=== PATIENT | female | born 1990 | race Caucasian/White ===

== ENCOUNTER 2022-11-01 14:54 | Inpatient (IN) | payer MEDICAID, SELFPAY ==
[2022-11-01] VITALS (24 sets, daily range): BP systolic 117–169; BP diastolic 55–88; PULSE 87–122; RESP 16–18; TEMP 36.4–36.8; O2SAT 98–99; BMI 37.1; BMI 36.7
[2022-11-01 13:10] LABS: Appearance Urine Clear (Clear); Bilirubin Urine 1+ (Negative); Blood Urine 2+ (Negative); Color Urine Yellow (Yellow); Glucose Urine Negative (Negative); Ketones Urine Trace (Negative); Leukocyte Esterase Urine Negative (Negative); Nitrite Urine Negative (Negative); Protein Urine 2+ (Negative); Specific Gravity Urine 1.025 (1.000-1.030)
[2022-11-01] MEDS: AMPICILLIN 2 GM in 0.9 % SODIUM CHLORIDE Mini-bag 100 ML IVPB (13:10)
[2022-11-01 13:11] LABS: Basophils Percent Auto 0.1 % (0.0-3.0); Eosinophils Percent Auto 0.5 % (0.0-7.0); Hematocrit 35.9 % (33.0-51.0); Hemoglobin* 11.5 gm/dL (12.0-16.0); Immature Granulocytes Pct Auto 0.3 %; Lymphocytes Percent Auto 9.8 % (20-44); Mean Corpuscular HGB Conc 32 gm/dL (32-36); Mean Corpuscular Hemoglobin 25 pg (26-34); Mean Corpuscular Volume 79 fL (80-100); Monocytes Percent Auto 3.6 % (0.0-11.0); Neutrophils Percent Auto 85.7 % (42.0-72.0); Platelet Count* 275 K/uL (140-440); RDW Coefficient of Variation % 14.3 % (11.5-15.5); Red Blood Count 4.52 m/uL (4.00-5.20); White Blood Count* 17.38 K/uL (4.50-11.00)
[2022-11-01 13:18] LABS: Slide Review Reflex No
[2022-11-01 13:38] LABS: Bacteria Urine Few; Squamous Epithelial Cell Urine Moderate (None-Few)
[2022-11-01 14:08] LABS: Hepatitis B Surface Antigen* Negative (Negative)
[2022-11-01 14:18] LABS: HIV 1/2/P24 Combo Screen* Negative (Negative)
[2022-11-01 14:40] LABS: Amphetamine Screen Urine Negative (Negative); Barbiturate Screen Urine Negative (Negative); Benzodiazepines Screen Urine Negative (Negative); Cannabinoid Screen Urine Negative (Negative); Cocaine Screen Urine Negative (Negative); Methadone Screen Urine Negative (Negative); Methamphetamines Screen Urine Negative (Negative); Opiate Screen Urine Negative (Negative); Oxycodone Screen Urine Negative (Negative); Phencyclidine Screen Urine Negative (Negative); Tricyclic Antidepressant Urine Negative (Negative)
[2022-11-01 15:27] LABS: SARS PCR* Negative SARS-CoV-2 (Negative)
--- NOTE | 2022-11-01 15:33 | PM.OBHPLI ---
OB - H&P: HPI Labor/Induction History of Present Illness Time Seen by Provider: 15:33 Date Seen: 11/01/22 Chief Complaint: The patient is a 32 year old 4 para 3 at 36+4 weeks gestation by 9w US, who presents with contractions. Chief complaint: Maternity Narrative: Cheyenne Sweeney is a 32 year old female at 36 weeks 4 days by 9 week ultrasound who presents with contractions. Her has been complicated by very limited care, history of syphilis, history of depression and anxiety, tobacco dependence. She was seen for several visits and had a normal 1st trimester and 20 week survey ultrasound. However, never completed labs as ordered. Last visit was at 22 weeks. States that she did not return for care due to lack of insurance and transportation. She does not have car insurance and her license was revoked. She and her 3 older children ages 7-20 months are residing with her parents in [place]. Her children attend school in [place]. She has not worked in 3 months. Tells me she just applied for [place] benefits. She has not applied for [place] assistance, snap benefits or medical insurance. States that she has generally been well over the course of her 2nd and 3rd trimesters. No visits to the ER or another clinic. No episodes of vaginal bleeding. No fevers or other significant illnesses. Reports normal movement. Of note, she was found to be positive for syphilis on 11/05/2021, prior to . She received appropriate treatment with penicillin G 1.2 million units on 11/07/2021. She then had repeat RPR 04/22/2022, at which time titre had decreased 1:256 > 1:16. States that she knows she contracts of LEs from Dennys LESTER. He also tested positive and has been treated. Tells me he has been retested with negative results. Presented to the [facility] Emergency Department today with contractions starting overnight. Initially just tightening. Then became more uncomfortable in triage. Bloody show. No leaking or gush of fluid. [place] regularly and found to be 5 cm dilated. Review of Systems Status of ROS: Reports: 10 or more systems reviewed and unremarkable except as noted in History and below Meds Home Medications and Allergies Allergies Allergy/AdvReac Type Severity Reaction Status Date / Time No Known Drug Allergies Allergy Verified 11/01/22 13:05 OB - H&P: Exam Physical Exam: Vital signs: Temp Pulse Resp BP Pulse Ox O2 Del Method 98.2 F 116 H 16 132/70 99 11/01/22 15:08 11/01/22 15:08 11/01/22 15:08 11/01/22 15:08 11/01/22 11:54 11/01/22 11:28 Narrative: General appearance: Well-appearing adult female. Alert, oriented and appropriate. No acute distress. HEENT: Right-sided ptosis. EOMI, no conjunctival injection or discharge. No nasal discharge. Mucous membranes moist. Neck: Supple. Cardiovascular: Regular rate and rhythm, no rubs, murmurs or extra heart sounds. Pulmonary: Clear to auscultation bilaterally. No wheezes, rales or rhonchi. Abdomen: Gravid. Soft, nontender, nondistended. MSK: Moving all extremities equally. Extremities: Warm and well perfused. Mild bilateral pedal edema. Skin: No rashes appreciated over exposed skin. Neuro: Grossly normal strength and sensation. No focal deficits. Psych: Flat affect. OB - Results Labs Labs: Short CBC 11/01/22 Range/Units 13:01 WBC 17.38 H (4.50-11.00) K/uL Hgb 11.5 L (12.0-16.0) gm/dL Hct 35.9 (33.0-51.0) % Plt Count 275 (140-440) K/uL Urine 11/01/22 Range/Units 12:21 Urine Color Yellow (Yellow) Urine Appearance Clear (Clear) Urine pH 7.0 (5.0-8.5) Ur Specific [place] 1.025 (1.000-1.030) Urine Protein 2+ A (Negative) Urine Glucose (UA) Negative (Negative) OB - Problem Based A/P Additional Plan (1) labor in third trimester: Problem details: Limited care. GBS unknown. Random BG 119. Status: Acute Plan: - S/p 1 dose ampicillin at 1300 - labs drawn - Hgb A1c pending - FHT category 1 - Nitrous for pain management once covid test is back. Epidural upon request - Expectant management (2) Limited care: Problem details: Dating based on 9 wk US. Normal 20 wk survey, EFW 60th percentile. Status: Acute Plan: - labs pending (3) History of syphilis: Problem details: About 6 months prior to , treated. Subsequent titre with appropriate decrease. Partner was also treated. Patient states no subsequent new partners or suspected exposures. Status: Acute Plan: - RPR pending (4) Financial insecurity: Problem details: She and her three children live with her parents. No medical insurance. Does not currently have a drivers license. Not currently working. Status: Acute Plan: - SW consult (5) Tobacco dependence: Problem details: 1 PPD. Status: Acute Plan: - Nicotine replacement upon request.
[2022-11-01] MEDS: CALCIUM CARBONATE 500 MG CHEW PO (16:54)
[2022-11-01] MEDS: AMPICILLIN 1 GM in 0.9 % SODIUM CHLORIDE Mini-bag 100 ML IVPB (16:59)
[2022-11-01 17:44] LABS: Chlamydia DNA Amplified* Not Detected (No Detected); GC DNA Amplified* Not Detected (No Detected)
[2022-11-01] MEDS: OXYTOCIN 30 unit/500 ML in NS 30 UNIT/500 ML BAG 325 UNIT IVPB (20:52)
[2022-11-01] MEDS: LIDOCAINE 1 % PF 30 ML INJECTION ×2 (20:52→21:23)
[2022-11-01] MEDS: KETOROLAC 30 MG/ML inj IVP (21:22)
--- NOTE | 2022-11-01 22:01 | P.OBPRC_ITS ---
Procedure Delivery date: 11/01/22 Procedure Done: Global Procedure Details: 32-year-old at 36 weeks 4 days by 9 wk ultrasound presented with regular contractions, found to be 5 cm dilated.? Contractions began overnight and became more intense upon evaluation in triage.? Limited care.? GBS unknown and she received ampicillin x2 doses prior to delivery.? She progressed to complete with AROM for clear fluid at 5:48 p.m. Pain was controlled with nitrous oxide.? She became complete, time unknown and started pushing at 8:16 p.m. she delivered a vigorous male over an intact perineum at 8:25 p.m. in the OA position.? was placed on maternal chest initially.? Umbilical cord was clamped and cut after approximately 5 minutes.? Infant was then brought to the warmer for evaluation by SHIPFITTER HELPER.? Patient received IV Pitocin and there is active management of 3rd stage.? Placenta delivered spontaneously at 8:34 p.m, intact 3 vessel cord.? There was a third-degree perineal laceration.? Ob on-call, Dr. Lima Mckoy was called in to evaluate and repair.? EBL was 50 mL.? Apgars were 8 and 8.
--- NOTE | 2022-11-01 22:30 | P.GYNCN_ITS ---
FENCE REPAIRMAN - CN: HPI Data of Consult Date Seen: 11/01/22 Patient: Steffanie Patient Consult date: 11/01/22 Requesting Physician: Sylwia Rai MD Primary Care Provider: Harry Hollins MD Consult Narrative Reason for consult: other (Third degree laceration repair) Narrative: Cheyenne Sweeney is a 32 year old G4 now P4 female status post unmedicated spontaneous vaginal delivery at 36 4/7 weeks gestation at 8:25 p.m. this evening. I was consulted for perineal repair as it appeared to be a third- degree. The patient received 50 mcg fentanyl IV prior to my arrival, and 10 mL 1% lidocaine had been infiltrated into the perineum. cc:: CC: Sylwia Rai MD [facility] Medical History (Updated 11/01/22 @ 22:35 by Lima Mckoy MD) Anxiety Cyst of Bartholin's gland duct Major depression PCOS (polycystic ovarian syndrome) Syphilis Surgical History (Updated 11/01/22 @ 15:56 by Sylwia Rai MD) Joy teeth extracted Social History Smoking Status: Current every day smoker Meds Home Medications and Allergies Allergies Allergy/AdvReac Type Severity Reaction Status Date / Time No Known Drug Allergies Allergy Verified 11/01/22 13:05 FENCE REPAIRMAN - Exam Physical Exam: Vital signs: Temp Pulse Resp BP Pulse Ox O2 Del Method 98.2 F 94 16 125/59 L 98 11/01/22 18:56 11/01/22 22:24 11/01/22 18:56 11/01/22 22:24 11/01/22 18:22 11/01/22 11:28 Constitutional: Constitutional: mild distress (Due to cramping low abdominal pain) Routine Exam: External: Present lacerations (Partial third-degree laceration with sphincter disrupted on the patient's left, skin torn to level of anus) Perineum Description: Edematous Comments: Rectal exam confirms intact rectal mucosa. FENCE REPAIRMAN - Results Labs Labs: Short CBC 11/01/22 Range/Units 13:01 WBC 17.38 H (4.50-11.00) K/uL Hgb 11.5 L (12.0-16.0) gm/dL Hct 35.9 (33.0-51.0) % Plt Count 275 (140-440) K/uL Urine 11/01/22 Range/Units 12:21 Urine Color Yellow (Yellow) Urine Appearance Clear (Clear) Urine pH 7.0 (5.0-8.5) Ur Specific [place] 1.025 (1.000-1.030) Urine Protein 2+ A (Negative) Urine Glucose (UA) Negative (Negative) Assessment and Plan Assessment and plan (1) Third degree perineal laceration: Status: Acute Plan See separate gynecologic procedure note for details of the perineal repair.
--- NOTE | 2022-11-01 22:36 | P.GYNPRC_ITS ---
Procedure Note Date Seen: 11/01/22 Procedure Details: After obtaining verbal consent, the patient was placed in the dorsal lithotomy position. Examination of the vagina, perineum, rectum were performed which confirmed a partial third-degree laceration with a disruption of the capsule on the patient's left, and the skin to the level of the anus. Rectal mucosa was intact. 20 mL 1% lidocaine plain was infiltrated into the perineum. The rectal sphincter was palpated where was retracted on the left, grasped with an Allis clamp for traction, and reapproximated with 3 interrupted sutures of 3- 0 Vicryl. The remaining tissues were reapproximated in the usual layered sterile fashion using a 3-0 chromic suture beginning at the apex in the vagina and ending at the hymenal ring. During the repair, the patient has additional discomfort, and 50 mcg of fentanyl was administered intravenously. The patient tolerated the procedure well. Sponge and needle counts were correct following the procedure. Rectal examination following the procedure demonstrated no suture material within the rectum.
[2022-11-02] MEDS: CALCIUM CARBONATE 500 MG CHEW PO (00:01)
[2022-11-02 01:48] LABS: Hepatitis C Virus Antibody* Negative (Negative)
[2022-11-02 02:02] VITALS: BP 126/74; PULSE 116; RESP 18; TEMP 36.8; O2SAT 94
[2022-11-02] MEDS: ACETAMINOPHEN 500 MG TABLET 1000 MG PO ×3 (02:24→15:01)
[2022-11-02 04:00] VITALS: BP 142/84; PULSE 90; RESP 16; TEMP 36.6; O2SAT 95
[2022-11-02 07:26] VITALS: BP 131/78; PULSE 97; RESP 16; TEMP 37; O2SAT 96
[2022-11-02] MEDS: DOCUSATE SODIUM 100 MG CAPSULE PO (08:44)
--- NOTE | 2022-11-02 10:17 | P.OBPN_ITS ---
Subjective Time Seen by Provider: 10:17 Date Seen: 11/02/22 Narrative: Endorses some uterine cramping and sore bottom. Medications are helpful. Bleeding is minimal. Urinating without difficulty. No gas or BM as of yet. Planning to breastfeed. Baby boy with some respiratory distress overnight, now in the nursery on D10, antibiotics, close monitoring of respiratory status. Mom has not been pumping. Objective Exam: General appearance: Well-appearing adult female. Lying back in bed. Alert and oriented. No acute distress. HEENT: EOMI, no conjunctival injection or discharge. No nasal discharge. Muco us membranes moist. Neck: Supple. Cardiovascular: Regular rate and rhythm, no rubs, murmurs or extra heart sounds. Pulmonary: Clear to auscultation bilaterally. No wheezes, rales or rhonchi. Abdomen: Soft. Uterus 1 cm below the umbilicus, firm. Mildly tender to palpation. Extremities: Warm and well perfused. No lower extremity edema. Vital Signs: Last Vital Signs Temp 98.6 F 11/02/22 07:26 Pulse 97 11/02/22 07:26 Resp 16 11/02/22 07:26 BP 131/78 11/02/22 07:26 Pulse Ox 96 11/02/22 07:26 O2 Del Method 11/02/22 07:26 Assessment Amniotic Membrane Status: AROM
--- NOTE | 2022-11-02 10:22 | PM.OBPNVD1 ---
OB - PN:Subj Subjective Time Seen by Provider: 10: Date Seen: 11/02/22 Narrative: Endorses some uterine cramping and sore bottom. Medications are helpful. Bleeding is minimal. Urinating without difficulty. No gas or BM as of yet. Planning to breastfeed. Baby boy with some respiratory distress overnight, now in the nursery on D10, antibiotics, close monitoring of respiratory status. Mom has not been pumping. OB - PN: Obj Exam Physical Exam: Vital signs: Temp Pulse Resp BP Pulse Ox O2 Del Method 98.6 F 97 16 131/78 96 11/02/22 07:26 11/02/22 07:26 11/02/22 07:26 11/02/22 07:26 11/02/22 07:26 11/02/22 07:26 Narrative: General appearance: Well-appearing adult female. Lying back in bed. Alert and oriented. No acute distress. HEENT: EOMI, no conjunctival injection or discharge. No nasal discharge. Mucous membranes moist. Neck: Supple. Cardiovascular: Regular rate and rhythm, no rubs, murmurs or extra heart sounds. Pulmonary: Clear to auscultation bilaterally. No wheezes, rales or rhonchi. Abdomen: Soft. Uterus 1 cm below the umbilicus, firm. Mildly tender to palpation. Extremities: Warm and well perfused. No lower extremity edema. OB - PN: Obj Data Labs Labs: Laboratory Results - last 24 hr 11/01/22 11/01/22 11/01/22 12:21 13:01 13:01 WBC 17.38 H RBC 4.52 Hgb 11.5 L Hct 35.9 MCV 79 L MCH 25 L MCHC 32 RDW Coeff of Rickey 14.3 Plt Count 275 Neut % (Auto) 85.7 H Lymph % (Auto) 9.8 L [place] % (Auto) 3.6 Eos % (Auto) 0.5 Baso % (Auto) 0.1 Neut # (Auto) 14.90 H Lymph # (Auto) 1.70 [place] # (Auto) 0.60 Eos # (Auto) 0.10 Baso # (Auto) 0.00 Hemoglobin A1c Urine Color Yellow Urine Appearance Clear Urine pH 7.0 Ur Specific [place] 1.025 Urine Protein 2+ A Urine Glucose (UA) Negative Urine Ketones Trace A Urine Blood 2+ A Urine Nitrite Negative Urine Bilirubin 1+ A Urine Urobilinogen 1.0 Ur Leukocyte Esterase Negative Urine RBC 5-10 A Urine WBC 2-5 Ur Squamous Epith Cells Moderate A Urine Bacteria Few A Urine Opiates Screen Ur Oxycodone Screen Urine Methadone Screen Ur Propoxyphene Screen Ur Barbiturates Screen U Tricyclic Antidepress Ur Phencyclidine Scrn Ur Amphetamines Screen U Methamphetamines Scrn U Benzodiazepines Scrn Urine Cocaine Screen U Marijuana (THC) Screen C.trachomatis Ampl DNA SARS-CoV-2 (PCR) Hep Bs Antigen Negative Hepatitis C Antibody Negative HCV RNA (NAAT) IU/mL HCV RNA (NAAT) log IU/mL Hep C RNA NAAT log IU/mL Intrp HIV 1&2 Ab/P24 Ag 4thGn N.gonorrhoeae Ampl DNA Rubella IgG Antibody Blood Type 11/01/22 11/01/22 11/01/22 13:01 13:01 13:01 WBC RBC Hgb Hct MCV MCH MCHC RDW Coeff of Rickey Plt Count Neut % (Auto) Lymph % (Auto) [place] % (Auto) Eos % (Auto) Baso % (Auto) Neut # (Auto) Lymph # (Auto) [place] # (Auto) Eos # (Auto) Baso # (Auto) Hemoglobin A1c Urine Color Urine Appearance Urine pH Ur Specific [place] Urine Protein Urine Glucose (UA) Urine Ketones Urine Blood Urine Nitrite Urine Bilirubin Urine Urobilinogen Ur Leukocyte Esterase Urine RBC Urine WBC Ur Squamous Epith Cells Urine Bacteria Urine Opiates Screen Ur Oxycodone Screen Urine Methadone Screen Ur Propoxyphene Screen Ur Barbiturates Screen U Tricyclic Antidepress Ur Phencyclidine Scrn Ur Amphetamines Screen U Methamphetamines Scrn U Benzodiazepines Scrn Urine Cocaine Screen U Marijuana (THC) Screen C.trachomatis Ampl DNA SARS-CoV-2 (PCR) Hep Bs Antigen Hepatitis C Antibody HCV RNA (NAAT) IU/mL HCV RNA (NAAT) log IU/mL Hep C RNA NAAT log IU/mL Intrp HIV 1&2 Ab/P24 Ag 4thGn Negative N.gonorrhoeae Ampl DNA Rubella IgG Antibody Cancelled Blood Type AB Positive 11/01/22 11/01/22 11/01/22 13:01 14:27 14:27 WBC RBC Hgb Hct MCV MCH MCHC RDW Coeff of Rickey Plt Count Neut % (Auto) Lymph % (Auto) [place] % (Auto) Eos % (Auto) Baso % (Auto) Neut # (Auto) Lymph # (Auto) [place] # (Auto) Eos # (Auto) Baso # (Auto) Hemoglobin A1c 6.20 H Urine Color Urine Appearance Urine pH Ur Specific [place] Urine Protein Urine Glucose (UA) Urine Ketones Urine Blood Urine Nitrite Urine Bilirubin Urine Urobilinogen Ur Leukocyte Esterase Urine RBC Urine WBC Ur Squamous Epith Cells Urine Bacteria Urine Opiates Screen Negative Ur Oxycodone Screen Negative Urine Methadone Screen Negative Ur Propoxyphene Screen Negative Ur Barbiturates Screen Negative U Tricyclic Antidepress Negative Ur Phencyclidine Scrn Negative Ur Amphetamines Screen Negative U Methamphetamines Scrn Negative U Benzodiazepines Scrn Negative Urine Cocaine Screen Negative U Marijuana (THC) Screen Negative C.trachomatis Ampl DNA SARS-CoV-2 (PCR) Negative SARS-CoV-2 Hep Bs Antigen Hepatitis C Antibody HCV RNA (NAAT) IU/mL HCV RNA (NAAT) log IU/mL Hep C RNA NAAT log IU/mL Intrp HIV 1&2 Ab/P24 Ag 4thGn N.gonorrhoeae Ampl DNA Rubella IgG Antibody Blood Type 11/01/22 11/02/22 11/02/22 14:34 07:23 13:01 WBC RBC Hgb 10.0 L Hct MCV MCH MCHC RDW Coeff of Rickey Plt Count Neut % (Auto) Lymph % (Auto) [place] % (Auto) Eos % (Auto) Baso % (Auto) Neut # (Auto) Lymph # (Auto) [place] # (Auto) Eos # (Auto) Baso # (Auto) Hemoglobin A1c Urine Color Urine Appearance Urine pH Ur Specific [place] Urine Protein Urine Glucose (UA) Urine Ketones Urine Blood Urine Nitrite Urine Bilirubin Urine Urobilinogen Ur Leukocyte Esterase Urine RBC Urine WBC Ur Squamous Epith Cells Urine Bacteria Urine Opiates Screen Ur Oxycodone Screen Urine Methadone Screen Ur Propoxyphene Screen Ur Barbiturates Screen U Tricyclic Antidepress Ur Phencyclidine Scrn Ur Amphetamines Screen U Methamphetamines Scrn U Benzodiazepines Scrn Urine Cocaine Screen U Marijuana (THC) Screen C.trachomatis Ampl DNA Not Detected SARS-CoV-2 (PCR) Hep Bs Antigen Hepatitis C Antibody HCV RNA (NAAT) IU/mL Cancelled HCV RNA (NAAT) log IU/mL Cancelled Hep C RNA NAAT log IU/mL Intrp Cancelled HIV 1&2 Ab/P24 Ag 4thGn N.gonorrhoeae Ampl DNA Not Detected Rubella IgG Antibody Blood Type OB - PN: A/P Vaginal Delivery Assessment and Plan (1) Third degree perineal laceration: Status: Acute (2) labor in third trimester: Problem details: Limited care. GBS unknown. Random BG 119. Status: Acute (3) Limited care: Problem details: Dating based on 9 wk US. Normal 20 wk survey, EFW 60th percentile. Status: Acute (4) History of syphilis: Problem details: About 6 months prior to , treated. Subsequent titre with appropriate decrease. Partner was also treated. Patient states no subsequent new partners or suspected exposures. Status: Acute (5) Tobacco dependence: Problem details: 1 PPD. Status: Acute (6) Financial insecurity: Problem details: She and her three children live with her parents. No medical insurance. Does not currently have a drivers license. Not currently working. Status: Acute Plan day: 1 Plan: routine care Comments: - Review of labs normal thus far with exception of A1c in the prediabetic range - BPs mildly elevated after delivery, but have improved - Encouraged pumping - Stool softener for third degree laceration - Oral iron for PP hgb 10 - Routine post- cares - Anticipate d/c tomorrow earliest
[2022-11-02] MEDS: IBUPROFEN 600 MG TABLET PO (12:13)
[2022-11-02 12:16] VITALS: BP 146/91; PULSE 89; RESP 16; TEMP 36.6; O2SAT 97
[2022-11-02 12:36] VITALS: BP 129/80
[2022-11-02 13:20] LABS: Hematocrit 28.8 % (33.0-51.0); Hemoglobin* 9.3 gm/dL (12.0-16.0); Mean Corpuscular HGB Conc 32 gm/dL (32-36); Mean Corpuscular Hemoglobin 26 pg (26-34); Mean Corpuscular Volume 80 fL (80-100); Platelet Count* 234 K/uL (140-440); Red Blood Count 3.61 m/uL (4.00-5.20); White Blood Count* 10.69 K/uL (4.50-11.00)
[2022-11-02 13:28] LABS: Slide Review Reflex No
[2022-11-02 13:35] LABS: Aspartate Amino Transferase* 29 U/L (12-35); Creatinine* 0.4 mg/dL (0.5-1.5); Est. Creatinine Clearance* 172.74; Estimated Glomerular Filt Rate 134 ml/min
[2022-11-02 13:36] LABS: Alanine Aminotransferase* 17 U/L (4-35); Blood Urea Nitrogen* 8 mg/dL (5-24)
[2022-11-02 15:03] LABS: Strep B DNA Probe POSITIVE (Negative)
[2022-11-02 15:04] LABS: Strep B Pen/Amox Allergy No
[2022-11-02 15:34] LABS: Total Protein Urine 30 mg/dL
[2022-11-02 15:45] LABS: Creatinine Urine 56.5 mg/dL
[2022-11-02 16:23] VITALS: BP 130/80; PULSE 97; RESP 16; O2SAT 97
--- NOTE | 2022-11-02 16:44 | P.DS_ITS ---
DS: Providers Provider Time Seen by Provider: 16:44 Date Seen: 11/02/22 Date of admission: 11/01/22 14:54 Primary care physician: Harry Hollins MD Admitting Clinician: Sylwia Rai MD Consults: 11/01/22 12:25 Consult to [place] Nurse [CONS] Routine Comment: Reason for Consult:: Substance Abuse Screening 11/02/22 02:49 Consult to [place] Nurse [CONS] Routine Comment: Reason for Consult:: Social Service Consult Discharge Planning Needs Attending Physician on discharge: Sylwia Rai MD Date of Discharge: 11/02/22 DS: Diagnosis Discharge Diagnosis (1) labor in third trimester: Status: Acute Problem details: Limited care. GBS unknown. Random BG 119. (2) Limited care: Status: Acute Problem details: Dating based on 9 wk US. Normal 20 wk survey, EFW 60th percentile. (3) History of syphilis: Status: Acute Problem details: About 6 months prior to , treated. Subsequent titre with appropriate decrease. Partner was also treated. Patient states no subsequent new partners or suspected exposures. (4) Tobacco dependence: Status: Acute Problem details: 1 PPD. (5) Financial insecurity: Status: Acute Problem details: She and her three children live with her parents. No medical insurance. Does not currently have a drivers license. Not currently working. (6) Third degree perineal laceration: Status: Acute (7) Elevated blood pressure reading: Status: Acute Exam Narrative: Exam Narrative: General appearance:? Well-appearing adult female.? Lying back in bed.? Alert and oriented.? No acute distress.? HEENT:? EOMI, no conjunctival injection or discharge.? No nasal discharge.? Mucous membranes moist.? Neck: Supple.? Cardiovascular:? Regular rate and rhythm, no rubs, murmurs or extra heart sounds.? Pulmonary:? Clear to auscultation bilaterally.? No wheezes, rales or rhonchi.? Abdomen:? Soft.? Uterus 1 cm below the umbilicus, firm.? Mildly tender to palpation. Extremities:? Warm and well perfused.? No lower extremity edema. Const: Vital Signs, click to edit/add: Vital Signs - 24 hr 11/01/22 16:48 11/01/22 17:04 11/01/22 17:27 Temperature 97.7 F Pulse Rate 109 H Pulse Rate [Pulse Oximeter] Respiratory Rate 16 Blood Pressure 135/78 Blood Pressure [Ri ght Arm] Pulse Oximetry 98 Oxygen Delivery Me thod 11/01/22 17:52 11/01/22 18:22 11/01/22 18:56 Temperature 97.9 F Pulse Rate 98 Pulse Rate [Pulse Oximeter] Respiratory Rate 16 Blood Pressure 124/64 Blood Pressure [Ri ght Arm] Pulse Oximetry 98 Oxygen Delivery Me thod 11/01/22 18:56 11/01/22 20:39 11/01/22 20:53 Temperature 98.2 F Pulse Rate 122 H 108 H Pulse Rate [Pulse Oximeter] Respiratory Rate 16 Blood Pressure 162/87 H 158/81 H Blood Pressure [Ri ght Arm] Pulse Oximetry Oxygen Delivery Me thod 11/01/22 21:09 11/01/22 21:23 11/01/22 21:38 Temperature Pulse Rate 108 H 100 97 Pulse Rate [Pulse Oximeter] Respiratory Rate Blood Pressure 147/80 H 155/88 H 147/87 H Blood Pressure [Ri ght Arm] Pulse Oximetry Oxygen Delivery Mt thod 11/01/22 21:54 11/01/22 22:09 11/01/22 22:24 Temperature Pulse Rate 87 98 94 Pulse Rate [Pulse Oximeter] Respiratory Rate Blood Pressure 169/80 H 149/67 H 125/59 L Blood Pressure [Ri ght Arm] Pulse Oximetry Oxygen Delivery Me thod 11/01/22 22:38 11/01/22 22:53 11/01/22 23:08 Temperature Pulse Rate 103 H 102 H 108 H Pulse Rate [Pulse Oximeter] Respiratory Rate Blood Pressure 124/55 L 119/58 L 117/56 L Blood Pressure [Ri ght Arm] Pulse Oximetry Oxygen Delivery Me thod 11/02/22 02:02 11/02/22 07:26 11/02/22 04:00 Temperature 98.2 F 98.6 F 97.9 F Pulse Rate Pulse Rate [Pulse Oximeter] 116 H 97 90 Respiratory Rate 18 16 16 Blood Pressure Blood Pressure [Ri ght Arm] 126/74 131/78 142/84 H Pulse Oximetry 94 96 95 Oxygen Delivery Me thod Room Air Room Air Room Air 11/02/22 12:16 11/02/22 12:36 11/02/22 16:23 Temperature 97.8 F Pulse Rate Pulse Rate [Pulse Oximeter] 89 97 Respiratory Rate 16 16 Blood Pressure Blood Pressure [Ri ght Arm] 146/91 H 129/80 130/80 Pulse Oximetry 97 97 Oxygen Delivery Me thod Room Air Room Air OB - DS: Summary Hospital Course Hospital Course: The patient is a 32 year old G 4 P 3 at 36w4d weeks gestation that was admitted to the Center on 11/01/22 for labor. was complicated by very limited care. The patient had 9 week dating ultrasound and normal survey, but no labs. She reported this was due to having health insurance and transportation barriers. labs were obtained upon admission and are thus far unremarkable with exception of hemoglobin A1c of 6.2. Likely undiagnosed GDM. Patient also has a history of syphilis about 6 months prior to that was adequately treated; she had decreasing titers when she found out she was . Repeat RPR is pending. UDS and U tox were negative. She had an uncomplicated vaginal delivery. Third-degree perineal laceration. She delivered a viable male . noted to have respiratory distress after delivery and will be transferring to [facility] for NICU support on day 1 of life. Patient desires to proceed. She has been hand expressing some colostrum as has been unable to feed. She has had some elevated blood pressures after delivery, intermittent 140s over 80s to 90s. Preeclampsia labs were o btained and protein creatinine ratio was elevated to 0.5. Otherwise no concerning symptoms. Blood pressures is overall improving. The patient would like to discharge to travel with her to the NICU. She will be sent with home blood pressure cuff and instructions to check blood pressures twice daily and record. Plan for close outpatient follow-up. consult was ordered but not completed prior to discharge. [place] Gender: Male Status at Discharge Functional status at discharge: independent ambulation Overall status at discharge: patient is progressing back to baseline Time Spent with Patient Time attestation: Total time spent providing and/or coordinating discharge services: Time spent: Greater than 30 minutes Discharge Plan Discharge Disposition: Home, Self-Care Date of Admission: 11/01/22 14:54 Attending Provider on Discharge: Sylwia Rai Primary Care Provider: Harry Hollins Condition: Stable Anticipated Discharge Date/Time: 11/02/22 16:57 Discharge Medications: New acetaminophen 500 mg Tablet 1,000 mg PO Q6H PRN30 Days Qty: 30 0RF ferrous sulfate 325 mg (65 mg iron) Tablet 325 mg PO DAILYWM 30 Days Qty: 30 0RF docusate sodium 100 mg Capsule 100 mg PO DAILY 30 Days Qty: 30 0RF ibuprofen 600 mg Tablet 600 mg PO Q6H PRN30 Days Qty: 30 0RF Discharge Orders: Discharge Order (Routine); Ordered 11/02/22 Ordered By: Sylwia Rai Patient Education: OB High Blood Pressure DC, OB Vaginal/Breast Feeding Additional Instructions: - Check blood pressure twice daily and write it down in your log - If blood pressure elevated above 140/90, rest for 10 minutes and recheck. If the blood pressure is still elevated, contact the [facility] or the Center - If you have any symptoms of new headache, changes in your vision, pain in the right upper part of your abdomen or lower extremity swelling, contact the clinic - Plan to follow-up with Dr. Rai likely next week when Jose D is discharged from the NICU Activity Level: Activity as Tolerated Discharge Diet: Regular Follow Up Appointments: Sylwia Rai MD [Staff Physician] - (Within 1 week of discharge to check blood pressure. With Dr. Rai at 6 weeks post-) Harry Hollins MD [Primary Care Provider] - Forms: [employer] Info Instructions
--- NOTE | 2022-11-03 15:58 | PC.SOCIAL ---
Esthetician: SW phoned pt to provide MA application information through [facility]. Voice mailbox full and unable to leave a message at this time.
[2022-11-05 01:21] LABS: Rapid Plasma Reagin (RPR) Reactive (Non Reactive)
[2022-11-05 04:31] LABS: Rubella Antibody IgG 26.9 IU/mL
[2022-11-06 00:18] LABS: Treponema pallidum AbTP-PA Reactive (Non Reactive)
== END 2022-11-02 18:02 | disposition home or self-care (01) | DRG 560 ==
LOC: OB OUT 14:55 → OB 14:55
PROVIDERS: Admitting Provider Family Medicine; PCP Family Medicine; Visit Provider Family Medicine
DX: O60.14X0 Preterm labor third trimester with preterm delivery third trimester, not applicable or unspecified (principal); Z37.0 Single live birth; O70.20 Third degree perineal laceration during delivery, unspecified; Z86.19 Personal history of other infectious and parasitic diseases; O13.5 Gestational [pregnancy-induced] hypertension without significant proteinuria, complicating the puerperium; O99.334 Smoking (tobacco) complicating childbirth; F17.210 Nicotine dependence, cigarettes, uncomplicated; O99.344 Other mental disorders complicating childbirth; F32.A Depression, unspecified; F41.9 Anxiety disorder, unspecified; Z59.86 Financial insecurity; Z3A.36 36 weeks gestation of pregnancy
CPT/HCPCS: 36415; 80306; 81003; 81015; 82565; 82570; 83036; 84156; 84450; 84460; 84520; 85018; 85025; 85027; 86592; 86593; 86703; 86762; 86780; 86803; 86850; 86900; 86901; 87081; 87086; 87340; 87491; 87522; 87591; 87635; 87653; 88307; A9270; J0290; J1885; J2001; J3010

== ENCOUNTER 2024-07-11 09:08 | Emergency (ER) | payer OTHER, SELFPAY ==
[2024-07-11 09:34] VITALS: BP 123/84; PULSE 88; RESP 18; TEMP 36.6; O2SAT 97; BMI 34.3
[2024-07-11 10:35] LABS: Strep A DNA Probe* NOT DETECTED (Not Detectd)
[2024-07-11 11:23] LABS: PCR FLU A Negative PCR FLU A (Negative); PCR FLU B Negative PCR FLU B (Negative); PCR RSV Negative PCR RSV (Negative); SARS PCR* Negative SARS-CoV-2 (Negative)
--- NOTE | 2024-07-11 13:39 | ED_ITS ---
HPI - General Adult General Chief complaint: Cough Stated complaint: Cough, sore throat, congestion Time Seen by Provider: 07/11/24 11:39 Source: patient Mode of arrival: ambulatory Limitations: no limitations History of Present Illness HPI narrative: Patient is a 33-year-old woman here with 2 of her kids for evaluation of upper respiratory symptoms ongoing for the past couple of days. No fevers. She has had a cough, has underlying asthma but does not feel that she has been wheezy or short of breath. Kids are sick with the same symptoms. She smokes, denies other medical history. Related Data Home Medications ?Medication ?Instructions ?Recorded ?Confirmed No Known Home Medications 07/11/24 07/11/24 Allergies Allergy/AdvReac Type Severity Reaction Status Date / Time No Known Drug Allergies Allergy Verified 11/01/22 13:05 Review of Systems Status of ROS: Reports: 6 or more systems reviewed and unremarkable except as noted in History and below PFSH [facility] Medical History PCOS (polycystic ovarian syndrome) ?E28.2 - Polycystic ovarian syndrome (ICD-10) Syphilis ?A53.9 - Syphilis, unspecified (ICD-10) Anxiety ?F41.9 - Anxiety disorder, unspecified (ICD-10) Major depression ?F32.9 - Major depressive disorder, single episode, unspecified (ICD-10) Cyst of Bartholin's gland duct ?N75.0 - Cyst of Bartholin's gland (ICD-10) Surgical History [place] teeth extracted ?K08.409 - Partial loss of teeth, unspecified cause, unspecified class (ICD- 10) Social History Smoking Status: Current every day smoker Do you use any of these nicotine containing products: None How often do you have a drink containing alcohol: never AUDIT-C Alcohol total score: 0 Non-prescribed substance use: denies use Exam Narrative: Exam Narrative: Vital signs as noted above. In general, an alert, well-appearing patient. Head: Normocephalic, atraumatic. Eyes: Pupils are equal reactive. Extraocular movements are full. Conjunctivae are normal. ENT: Mucous membranes are moist. Throat is mildly erythematous, no exudate or edema. Neck: Supple without lymphadenopathy. No stridor. Heart: Regular rate and rhythm. No murmur or rub. Lungs: Clear bilaterally. No increased work of breathing, crackles or wheezes. Neurologic: Patient is alert and oriented to person and place. Speech is fluent. Face is symmetric. Moves all extremities equally. Affect: Normal. Skin: Warm and dry. Well perfused. Const: Vital Signs, click to edit/add: Vital Signs - 24 hr 07/11/24 09:34 Temperature 97.8 F Pulse Rate [Pulse Oximeter] 88 Respiratory Rate 18 Blood Pressure [Ri ght Upper Arm] 123/84 Pulse Oximetry 97 Oxygen Delivery Me thod Room Air Documenting provider has reviewed patient's vital signs: yes Course Course ED Course: COVID influenza and RSV as well as strep were all negative. Discussed that symptoms are likely viral, should improve over the next week to 10 days. Ibuprofen and/or Tylenol as needed. Maintain hydration. Return for acute worsening. See primary care if not improving over that time frame. Lungs are clear here, she does not feel that she is having significant problems with her asthma, adding prednisone would be an option if she is having more problems but I do not see a clear indication today. Vital Signs Vital signs: Initial Vital Signs Temperature 97.8 F 07/11/24 09:34 Temperature Source Temporal Artery Scan 07/11/24 09:34 Pulse Rate 88 07/11/24 09:34 Respiratory Rate 18 07/11/24 09:34 Blood Pressure 123/84 07/11/24 09:34 Blood Pressure Mean 97 07/11/24 09:34 Blood Pressure Position Sitting 07/11/24 09:34 Pulse Oximetry 97 07/11/24 09:34 Oxygen Delivery Method Room Air 07/11/24 09:34 Vital Signs Temperature 97.8 F 07/11/24 09:34 Pulse Rate 88 07/11/24 09:34 Respiratory Rate 18 07/11/24 09:34 Blood Pressure 123/84 07/11/24 09:34 Pulse Oximetry 97 07/11/24 09:34 Oxygen Delivery Method Room Air 07/11/24 09:34 Temperature 97.8 F 07/11/24 09:34 Pulse Rate 88 07/11/24 09:34 Respiratory Rate 18 07/11/24 09:34 Blood Pressure 123/84 07/11/24 09:34 Pulse Oximetry 97 07/11/24 09:34 Oxygen Delivery Method Room Air 07/11/24 09:34 Medical Decision Making Lab Data Labs: Lab Results 07/11/24 Range/Units 09:50 SARS-CoV-2 (PCR) Negative SARS-CoV-2 (Negative) Influenza Type A (PCR) Negative PCR FLU A (Negative) Influenza Type B (PCR) Negative PCR FLU B (Negative) RSV (PCR) Negative PCR RSV (Negative) Group A Strep DNA NOT DETECTED (Not Detectd) Discharge Plan Discharge Clinical Impression: Acute viral syndrome Patient Disposition: Home, Self-Care Condition: Stable Instructions: Viral Syndrome (ED) Additional Instructions: Ibuprofen and/or Tylenol if needed. Typical viral syndromes last 7-10 days. If no improvement over that time period, you should be seen again by primary care. Return to the emergency department at any time for acute worsening, high fevers, difficulty breathing, uncontrolled vomiting etcetera. Prescriptions: No Action No Known Home Medications Follow Up/Referrals: Harry Hollins MD [Primary Care Provider] - Stand Alone Forms: [employer] Info Instructions
== END 2024-07-11 12:21 | disposition home or self-care (01) ==
LOC: ED 12:04
PROVIDERS: Emergency Provider Emergency Medicine; PCP Family Medicine
DX: B34.9 Viral infection, unspecified (principal)
CPT/HCPCS: 87631; 87651; 99283